=== PATIENT | male | born 1985 | race Caucasian/White ===

== ENCOUNTER 2018-10-12 08:34 | Emergency (ER) | payer SELFPAY ==
[~2018-10-12] VITALS: Wt 88.0 kg
[2018-10-12 08:37] VITALS: BP 140/87; PULSE 75; RESP 18
[2018-10-12] MEDS ORDERED: ONDANSETRON (ODT) 4 MG TAB ODT STA (08:56)
[2018-10-12] MEDS ORDERED: KETOROLAC 60 MG INJ IM STA (08:56)
[2018-10-12] MEDS ORDERED: ACET325T33 PO (10:13)
[2018-10-12] MEDS ORDERED: ONDA4TAB14 PO (10:13)
--- NOTE | 2018-10-12 10:21 | ERD ---
ER Documentation Chief Complaint Chief Complaint headache since last night sudden onset with vomiting,no ap HPI 33-year-old male presenting with headache and vomiting times 1 day. Patient has chills however no fever. Has not taken medication today. Denies abdominal pain. Denies chest pain or shortness of breath. Denies changes in urination or bowel movement. No sick contacts. Denies medical problems. NKDA. Surgical history denies. Up-to-date on vaccinations. Social history denies ROS All systems reviewed and are negative except as per history of present illness. Medications Home Meds Active Scripts Acetaminophen* (Tylenol*) 325 Mg Tablet, 2 TAB PO Q6 PRN for PAIN AND OR ELEVATED TEMP, #20 TAB Prov:GARY MARIN PA-C 10/12/18 Ondansetron (Ondansetron Odt) 4 Mg Tab.rapdis, 4 MG PO Q6H PRN for NAUSEA AND/OR VOMITING, #10 TAB Prov:GARY MARIN PA-C 10/12/18 Allergies Allergies: Coded Allergies: No Known Allergy (Unverified , 10/12/18) PMhx/Soc Medical and Surgical Hx: pt denies Medical Hx, pt denies Surgical Hx Hx Alcohol Use: No Hx Substance Use: No Hx Tobacco Use: No Smoking Status: Never smoker FmHx Family History: No diabetes, No coronary disease, No other Physical Exam Vitals Vital Signs Date Temp Pulse Resp B/P (MAP) Pulse Ox O2 O2 Flow FiO2 Time Delivery Rate 10/12/18 98.8 75 18 140/87 98 08:37 (104) Physical Exam GENERAL: The patient is well-appearing, well-nourished, in no acute distress HEENT: Atraumatic. Conjunctivae are pink. Pupils equal, round, and reactive to light. There is no scleral icterus. Tympanic membranes clear bilaterally. Oropharynx clear. CHEST: Clear to auscultation bilaterally. There are no rales, wheezes or rhonchi. HEART: Regular rate and rhythm. No murmurs, clicks, rubs or gallops. ABDOMEN:Soft, nontender and nondistended. Good bowel sounds. No rebound or guarding. No gross peritonitis. No gross organomegaly or masses. No Stark sign or McBurney point tenderness. NEUROLOGIC: Alert and oriented. Cranial nerves II through XII intact. Motor strength in all 4 extremities with 5 out of 5 strength. Sensation grossly intact. Normal speech and gait. SKIN: There is no apparent rash or petechiae. The skin is warm and dry. Results 24 hrs Current Medications Medications Dose Sig/Chio Start Time Status Last (Trade) Ordered Route PRN Stop Time Admin Dose Reason Admin Ondansetron 4 mg ONCE STAT 10/12/18 DC 10/12/18 HCl (Zofran ODT 08:56 10/12/18 09:06 Odt) 08:58 Ketorolac 60 mg ONCE STAT 10/12/18 DC 10/12/18 Tromethamine IM 08:56 10/12/18 09:06 (Toradol) 08:58 Procedures/MDM ER course: Zofran and Toradol given ED. I recommended CT brain given patient has had persistent headache that was a sudden onset however patient declines. Patient understood the risks versus benefits. MDM: 33-year-old male presenting with headache and vomiting. Patient's abdominal exam is non-concerning. Patient is able to jump up and down without peritoneal signs. I have low suspicion for meningitis or sepsis as patient's vitals are stable and there is no nuchal rigidity on exam. I have low suspicion for intracranial hemorrhage or neuro deficit. Neuro exam is within normal limits. Recommended CT scan for adequate confirmation however patient declined. Patient is discharged with strict ER precautions. Patient is told if symptoms change or worsen to return immediately to the ER. All questions answered at discharge Departure Diagnosis: Primary Impression: Vomiting Condition: Stable Patient Instructions: Vomiting (8Y-Adult) Referrals: [facility] YOU HAVE RECEIVED A MEDICAL SCREENING EXAM AND THE RESULTS INDICATE THAT YOU DO NOT HAVE A CONDITION THAT REQUIRES URGENT TREATMENT IN THE EMERGENCY DEPARTMENT. FURTHER EVALUATION AND TREATMENT OF YOUR CONDITION CAN WAIT UNTIL YOU ARE SEEN IN YOUR DOCTORS OFFICE WITHIN THE NEXT 1-2 DAYS. IT IS YOUR RESPONSIBILITY TO MAKE AN APPOINTMENT FOR FOLOW-UP CARE. IF YOU HAVE A PRIMARY DOCTOR --you should call your primary doctor and schedule an appointment IF YOU DO NOT HAVE A PRIMARY DOCTOR YOU CAN CALL OUR PHYSICIAN REFERRAL HOTLINE AT IF YOU CAN NOT AFFORD TO SEE A PHYSICIAN YOU CAN CHOSE FROM THE FOLLOWING [facility] [address] [facility]. [facility] [address] [facility] [facility] [address] [facility] [address] [facility] [address] [facility]. [facility] [address] Additional Instructions: FOLLOW UP WITH YOUR PRIMARY CARE PHYSICIAN TOMORROW.Return to this facility if you are not improving as expected. GARY MARIN PA-C Oct 12, 2018 10:21
== END 2018-10-12 10:28 | disposition home or self-care (01) ==
LOC: FTE 08:34
DX: R11.10 Vomiting, unspecified (principal)
CPT/HCPCS: 96372; 99284; J1885